=== PATIENT | male | born 1955 | race Two or more races ===

== ENCOUNTER 2023-02-24 15:21 | Inpatient (IN) | payer MEDICARE ==
[~2023-02-24] VITALS: Ht 172.7 cm; Wt 74.1 kg
[2023-02-24] MEDS ORDERED: LISI2.5T13 PO (16:37)
[2023-02-24] MEDS ORDERED: KETOROLAC TROMETHAMINE 30 MG/ML VIAL IVP ONE (16:45)
[2023-02-24] MEDS ORDERED: ONDANSETRON HCL 4 MG/2 ML VIAL IVP ONE (16:45)
[2023-02-24] MEDS ORDERED: SODIUM CHLORIDE 0.9% 2,000 ML IV ONE (16:45)
[2023-02-24] MEDS ORDERED: BACITRACIN 0.9 GM PACKET OINTMENT TP ONE (16:45)
[2023-02-24 17:08] LABS: BASOPHILS % (AUTO) 0.3 % (0.0-2.0); EOSINOPHILS % (AUTO) 0.1 % (1.0-6.0); HEMATOCRIT 46.9 % (41-53); HEMOGLOBIN 15.4 g/dL (13.5-17.5); LYMPHOCYTES # (AUTO) 0.7 K/uL (1.0-4.8); LYMPHOCYTES % (AUTO) 4.7 % (22.0-44.0); MEAN CORPUSCULAR HEMOGLOBIN 31.1 pg (26.0-34.0); MEAN CORPUSCULAR HGB CONC 32.8 G/dL (31.0-37.0); MEAN CORPUSCULAR VOLUME 95 fL (80-100); MONOCYTES % (AUTO) 6.5 % (2.0-9.0); NEUTROPHILS # (AUTO) 13.9 K/uL (1.8-7.7); PLATELET COUNT (AUTO) 240 K/uL (150-450); RED BLOOD CELL COUNT(AUTO) 4.94 MIL/uL (4.50-5.90); RED CELL DISTRIBUTION WIDTH 14.3 % (11.5-14.5); WHITE BLOOD COUNT (AUTO) 15.7 K/uL (4.5-11.0)
[2023-02-24 17:09] LABS: NEUTROPHILS % (AUTO) 88.4 % (40.0-70.0)
[2023-02-24 17:16] LABS: ANION GAP 4 mmol/L (8-16); CARBON DIOXIDE 22 mmol/L (22-29); CHLORIDE 106 mmol/L (98-107); CREATININE 1.09 mg/dL (0.60-1.30); GLOMERULAR FILTR. RATE CALC > 60 mL/min (>60); GLUCOSE,RANDOM 144 mg/dL (70-110); POTASSIUM 3.5 mmol/L (3.5-5.1); SODIUM SERUM 132 mmol/L (136-145); UREA NITROGEN, BLOOD 21 mg/dL (7-18)
[2023-02-24 17:24] LABS: LACTIC ACID 1.3 mmol/L (0.4-2.0)
[2023-02-24 17:25] LABS: ALCOHOL, BLOOD (SERUM) < 3 mg/dL (0-10)
[2023-02-24 17:26] LABS: TROPONIN I-HIGH SENSITIVITY 7 ng/L (<76)
[2023-02-24 17:41] LABS: ALANINE AMINOTRANSFERASE 21 U/L (12-78); ALBUMIN 3.7 g/dL (3.4-5.0); ALKALINE PHOSPHATASE 55 U/L (46-116); ASPARTATE AMINOTRANSFERASE 16 U/L (15-37); BILIRUBIN,TOTAL 0.5 mg/dL (0.1-1.0); CREATINE KINASE, TOTAL ONLY 137 U/L (39-308); LIPASE 36 U/L (16-77); TOTAL PROTEIN, SERUM 6.9 g/dL (6.4-8.2)
[2023-02-24 19:19] LABS: APPEARANCE,URINE CLEAR (CLEAR); BILIRUBIN,URINE NEGATIVE (NEGATIVE); COLOR,URINE LIGHT YELLOW (YELLOW); GLUCOSE, URINE (UA) NEGATIVE (NEGATIVE); KETONES,URINE NEGATIVE (NEGATIVE); LEUKOCYTE ESTERASE ,URINE NEGATIVE (NEGATIVE); NITRATE,URINE NEGATIVE (NEGATIVE); OCCULT BLOOD,URINE NEGATIVE (NEGATIVE); PH,URINE 5.5 (5.0-8.0); PH,URINE DRUG SCREEN 5.5 (5.0-8.0); PROTEIN,URINE NEGATIVE (NEGATIVE); SPECIFIC GRAVITIY, URINE 1.012 (1.003-1.030); UROBILINOGEN,URINE <=1.0 mg/dL (<=1.0)
[2023-02-24 19:25] LABS: ALCOHOL, URINE DRUG SCREEN NEGATIVE (NEGATIVE); AMPHET/METH SCREEN,URINE NEGATIVE (NEGATIVE); BARBITURATE SCREEN, URINE NEGATIVE (NEGATIVE); BENZODIAZEPINES SCREEN,URINE NEGATIVE (NEGATIVE); CANNABINOID SCREEN,URINE NEGATIVE (NEGATIVE); COCAINE SCREEN,URINE NEGATIVE (NEGATIVE); METHADONE SCREEN, URINE NEGATIVE (NEGATIVE); OPIATE SCREEN,URINE NEGATIVE (NEGATIVE); PHENCYCLIDINE SCREEN,URINE NEGATIVE (NEGATIVE)
[2023-02-24] MEDS ORDERED: ONDANSETRON HCL 4 MG/2 ML VIAL IVP PRN (19:30)
[2023-02-24 19:44] LABS: COARSE GRANULAR CASTS,URINE 0-2 /LPF (None Seen)
[2023-02-24 19:45] LABS: BACTERIA,URINE Rare /HPF (None Seen); MUCUS,URINE Few LPF (None Seen); WBC,URINE 0-2 /HPF (0-5)
[2023-02-24] MEDS: RINGERS SOLUTION,LACTATED 1,000 ML IV SCH (19:56)
[2023-02-24] MEDS: DOCUSATE SODIUM 100 MG CAPSULE PO SCH (20:41)
[2023-02-24 22:39] VITALS: BP 139/87; PULSE 66; RESP 18; TEMP 98
[2023-02-25 00:01] LABS: TROPONIN I-HIGH SENSITIVITY 9 ng/L (<76)
[2023-02-25 03:22] LABS: TROPONIN I-HIGH SENSITIVITY 9 ng/L (<76)
[2023-02-25 06:54] VITALS: BP 148/94; PULSE 62; RESP 18; TEMP 97.7
[2023-02-25 07:49] VITALS: BP 145/96; PULSE 61; RESP 18; TEMP 97.9
[2023-02-25] MEDS: DOCUSATE SODIUM 100 MG CAPSULE PO SCH ×2 (08:30→20:20)
[2023-02-25] MEDS: RINGERS SOLUTION,LACTATED 1,000 ML IV SCH ×2 (09:21→22:16)
[2023-02-25 10:57] VITALS: BP 145/96; PULSE 61
[2023-02-25 11:11] VITALS: BP 139/89; PULSE 70; RESP 19; TEMP 98
[2023-02-25 11:58] LABS: ANION GAP 9 mmol/L (8-16); CALCIUM, TOTAL 8.5 mg/dL (8.8-10.5); CARBON DIOXIDE 25 mmol/L (22-29); CHLORIDE 107 mmol/L (98-107); CREATININE 0.78 mg/dL (0.60-1.30); GLOMERULAR FILTR. RATE CALC > 60 mL/min (>60); GLUCOSE,RANDOM 124 mg/dL (70-110); POTASSIUM 4.1 mmol/L (3.5-5.1); SODIUM SERUM 141 mmol/L (136-145); UREA NITROGEN, BLOOD 20 mg/dL (7-18)
[2023-02-25 12:04] LABS: BASOPHILS % (AUTO) 0.3 % (0.0-2.0); EOSINOPHILS % (AUTO) 1.1 % (1.0-6.0); HEMATOCRIT 43.5 % (41-53); HEMOGLOBIN 14.1 g/dL (13.5-17.5); LYMPHOCYTES # (AUTO) 1.3 K/uL (1.0-4.8); LYMPHOCYTES % (AUTO) 17.9 % (22.0-44.0); MEAN CORPUSCULAR HEMOGLOBIN 30.7 pg (26.0-34.0); MEAN CORPUSCULAR HGB CONC 32.4 G/dL (31.0-37.0); MEAN CORPUSCULAR VOLUME 95 fL (80-100); MONOCYTES # (AUTO) 0.8 K/uL (0.1-1.0); MONOCYTES % (AUTO) 11.1 % (2.0-9.0); NEUTROPHILS # (AUTO) 5.2 K/uL (1.8-7.7); NEUTROPHILS % (AUTO) 69.6 % (40.0-70.0); PLATELET COUNT (AUTO) 224 K/uL (150-450); RED BLOOD CELL COUNT(AUTO) 4.59 MIL/uL (4.50-5.90); RED CELL DISTRIBUTION WIDTH 14.3 % (11.5-14.5); WHITE BLOOD COUNT (AUTO) 7.5 K/uL (4.5-11.0)
[2023-02-25] MEDS: AmLODIPine BESYLATE 5 MG TABLET PO SCH (12:38)
[2023-02-25 15:15] VITALS: BP 137/84; PULSE 56; RESP 19; TEMP 98.2
[2023-02-25] MEDS ORDERED: HYDROCODONE/ACETAMINOPHEN 5-325 MG TABLET PO PRN (17:30)
[2023-02-25] MEDS ORDERED: ACETAMINOPHEN 325 MG TABLET PO PRN (17:30)
[2023-02-25] MEDS: HYDROCODONE/ACETAMINOPHEN 5-325 MG TABLET PO PRN (18:07)
[2023-02-25 20:33] VITALS: BP 145/91; PULSE 56; RESP 19; TEMP 98
[2023-02-26 00:28] VITALS: BP 145/86; PULSE 55; RESP 17; TEMP 97.7
[2023-02-26 04:19] VITALS: BP 150/95; PULSE 58; RESP 19; TEMP 97.9
[2023-02-26 07:45] VITALS: BP 157/85; PULSE 60; RESP 16; TEMP 98
[2023-02-26] MEDS: DOCUSATE SODIUM 100 MG CAPSULE PO SCH (07:52)
[2023-02-26] MEDS: HEPARIN SODIUM,PORCINE 5,000 UNITS/ML VIAL SQ SCH ×3 (07:52→14:45)
[2023-02-26] MEDS: AmLODIPine BESYLATE 5 MG TABLET PO SCH (07:52)
[2023-02-26] MEDS ORDERED: AMLO5TAB66 PO (09:56)
[2023-02-26 10:52] VITALS: BP 152/94; PULSE 69; RESP 16; TEMP 98.9
[2023-02-26] MEDS: RINGERS SOLUTION,LACTATED 1,000 ML IV SCH (11:30)
[2023-02-26] MEDS: HYDROCODONE/ACETAMINOPHEN 5-325 MG TABLET PO PRN ×3 (11:49→15:50)
== END 2023-02-26 16:00 | disposition home or self-care (01) | DRG 913 ==
LOC: EMS 15:23 → 5S 20:34
PROVIDERS: ADMIT Internal Medicine; ATTEND Internal Medicine
DX: S09.8XXA Other specified injuries of head, initial encounter (principal); R65.11 Systemic inflammatory response syndrome (SIRS) of non-infectious origin with acute organ dysfunction; S50.11XA Contusion of right forearm, initial encounter; S60.229A Contusion of unspecified hand, initial encounter; S09.93XA Unspecified injury of face, initial encounter; R55 Syncope and collapse; I10 Essential (primary) hypertension; E11.9 Type 2 diabetes mellitus without complications; S60.221A Contusion of right hand, initial encounter; W18.39XA Other fall on same level, initial encounter; Y93.89 Activity, other specified; Y92.89 Other specified places as the place of occurrence of the external cause; Y99.8 Other external cause status; Z91.148 Patient's other noncompliance with medication regimen for other reason
CPT/HCPCS: 70450; 70486; 71045; 72125; 80048; 80053; 80307; 81001; 82550; 83605; 83690; 84484; 85025; 93005; 93306; 99291; G0378; G0480; J1644; J1885; J2405; J7120; 36415-L1; 36415-TC

== ENCOUNTER 2024-11-13 19:24 | Emergency (ER) | payer MEDICARE ==
[~2024-11-13] VITALS: Ht 175.3 cm; Wt 81.8 kg
[~2024-11-13 19:24] MED LIST: AMLO5TAB66 PO
[2024-11-13 19:51] VITALS: TEMP 98.4
[2024-11-13] MEDS: SODIUM CHLORIDE 0.9% 1,000 ML IV ONE ×2 (19:58→23:37)
[2024-11-13] MEDS: MORPHINE SULFATE 4 MG/ML SYRINGE IVP ONE (20:02)
[2024-11-13 20:22] LABS: BASOPHILS % (AUTO) 0.1 % (0.0-2.0); EOSINOPHILS % (AUTO) 0.4 % (1.0-6.0); HEMATOCRIT 44.2 % (41-53); HEMOGLOBIN 14.3 g/dL (13.5-17.5); LYMPHOCYTES # (AUTO) 1.4 K/uL (1.0-4.8); LYMPHOCYTES % (AUTO) 8.6 % (22.0-44.0); MEAN CORPUSCULAR HGB CONC 32.4 G/dL (31.0-37.0); MEAN CORPUSCULAR VOLUME 90 fL (80-100); MONOCYTES # (AUTO) 1.1 K/uL (0.1-1.0); MONOCYTES % (AUTO) 6.7 % (2.0-9.0); NEUTROPHILS # (AUTO) 13.4 K/uL (1.8-7.7); NEUTROPHILS % (AUTO) 84.2 % (40.0-70.0); PLATELET COUNT (AUTO) 215 K/uL (150-450); RED BLOOD CELL COUNT(AUTO) 4.94 MIL/uL (4.50-5.90)
[2024-11-13 20:27] LABS: CALCIUM, TOTAL 9.1 mg/dL (8.8-10.5); CREATININE 1.23 mg/dL (0.60-1.30); POTASSIUM 4.5 mmol/L (3.5-5.1)
[2024-11-13] MEDS ORDERED: IOHEXOL 350 MG/ML 100 ML VIAL ONE (20:47)
[2024-11-13] MEDS ORDERED: SODIUM CHLORIDE 0.9% 100 ML ONE (20:47)
[2024-11-13] MEDS ORDERED: 0.9% SODIUM CHLORIDE 10 ML SYRINGE IVP ONE (20:47)
[2024-11-13] MEDS: METOCLOPRAMIDE HCL 5 MG/ML 2 ML VIAL IVP ONE (22:06)
[2024-11-13] MEDS: HYDROmorphone HCL 2 MG/ML SYRINGE IVP ONE (22:06)
[2024-11-13] MEDS ORDERED: METOCLOPRAMIDE HCL 5 MG/ML 2 ML VIAL IVP ONE (23:30)
[2024-11-14 00:34] VITALS: BP 144/101; PULSE 81; RESP 16; O2SAT 95
== END 2024-11-14 02:02 | disposition short-term general hospital (02) ==
LOC: EMS 19:24
DX: S72.092A Other fracture of head and neck of left femur, initial encounter for closed fracture (principal); E11.9 Type 2 diabetes mellitus without complications; I10 Essential (primary) hypertension; R41.82 Altered mental status, unspecified; Z72.89 Other problems related to lifestyle; Z79.899 Other long term (current) drug therapy; W11.XXXA Fall on and from ladder, initial encounter; Y93.89 Activity, other specified; Y92.89 Other specified places as the place of occurrence of the external cause; Y99.8 Other external cause status
CPT/HCPCS: 70450; 99285; 96361; 96374; 96375; 80048; 85025; 86850; 86900; 86901; 36415; 73503; 72125; 72128; 72131; 74177; Q9967; J1171; J2765 ×2; J2270; J7030; J7050; 96376